=== PATIENT | female | born 1985 | race Hispanic/Latino ===

== ENCOUNTER 2024-06-11 20:45 | Emergency (ER) | payer OTHER ==
[~2024-06-11] VITALS: Ht 154.9 cm; Wt 74.8 kg
[2024-06-11 20:50] VITALS: TEMP 98.8
[2024-06-11 21:09] LABS: BILIRUBIN,URINE NEGATIVE (NEGATIVE); CLARITY,URINE HAZY (CLEAR); COLOR,URINE STRAW (YELLOW); GLUCOSE, URINE NEGATIVE (NEGATIVE); KETONES,URINE NEGATIVE (NEGATIVE); LEUKOCYTE ESTERASE ,URINE TRACE (NEGATIVE); NITRITE,URINE NEGATIVE (NEGATIVE); PH,URINE 6 (5 - 7); PROTEIN,URINE DIPSTICK NEGATIVE (NEGATIVE); URINE UROBILINOGEN 0.2 mg/dL (0.2 - 1)
[2024-06-11 21:10] LABS: PREGNANCY TEST, URINE POSITIVE (NEGATIVE)
[2024-06-11 21:15] LABS: BACTERIA,URINE MODERATE /HPF; EPITHELIAL CELLS,URINE MODERATE /LPF; RBC,URINE 21-50 /HPF (0-5); WBC,URINE (MAN) 0-5 /HPF (0-5)
[2024-06-11 21:45] VITALS: PULSE 79; RESP 16; O2SAT 100
[2024-06-11] MEDS ORDERED: CEPHALEXIN500 MG PO (21:50)
== END 2024-06-11 22:04 | disposition home or self-care (01) ==
LOC: ER 20:59
DX: O20.0 Threatened abortion (principal); O23.41 Unspecified infection of urinary tract in pregnancy, first trimester; N39.0 Urinary tract infection, site not specified
CPT/HCPCS: 36415; 81001; 81025; 84702; 99283

== ENCOUNTER 2024-06-12 11:24 | Emergency (ER) | payer OTHER ==
[~2024-06-12] VITALS: Ht 154.9 cm; Wt 74.8 kg
[~2024-06-12 11:24] MED LIST: CEPHALEXIN500 MG PO
[2024-06-12 11:45] VITALS: PULSE 86; RESP 16; TEMP 97.7; O2SAT 100
== END 2024-06-12 12:21 | disposition home or self-care (01) ==
LOC: ER 11:28
DX: O20.0 Threatened abortion (principal)
CPT/HCPCS: 99282